=== PATIENT | female | born 1980 | race Hispanic/Latino ===

== ENCOUNTER 2017-03-11 11:14 | Outpatient (CLI) | payer BC ==
--- NOTE | 2017-03-11 13:05 | Mammography Report ---
BILATERAL DIGITAL DIAGNOSTIC MAMMOGRAM with CAD and TOMOSYNTHESIS and RIGHT BREAST ULTRASOUND: 03/11/17 11:14:00 CLINICAL: Bilateral breast lumps. The patient describes a right breast lump at 11 o'clock near the areola. COMPARISON:None. FINDINGS: The breasts are heterogeneously dense, which may obscure small masses.An irregular 7 mm right retroareolar asymmetry is identified on the tomographic CC view. No architectural distortion or suspicious calcifications. The left breast is negative. Ultrasound of the right breast was performed in the upper-outer quadrant and demonstrated an irregular solid hypoechoic mass at 11 o'clock at the edge of the areola. It measures 1.5 x 0.5 x 0.6 cm and correlates with the palpable finding and with the finding on the CC tomosynthesis. IMPRESSION: A suspicious 1.5 cm right breast mass at 11 o'clock near the areola. Recommend ultrasound-guided needle biopsy. BI-RADS CATEGORY: 4 -- Suspicious COMMENT: Patient follow-up letters are generated by our [employer] application.
== END 2017-03-11 11:15 | disposition home or self-care (01) ==
LOC: MAMMO 11:14
PROVIDERS: ATTEND Obstetrics & Gynecology Gynecology
DX: N63.10 Unspecified lump in the right breast, unspecified quadrant (principal); N63.20 Unspecified lump in the left breast, unspecified quadrant; N64.89 Other specified disorders of breast
CPT/HCPCS: 76642; G0204; G0279; 77066

== ENCOUNTER 2017-03-18 11:27 | Outpatient (CLI) | payer BC ==
--- NOTE | 2017-03-18 13:53 | Ultrasound Report ---
RIGHT BREAST ULTRASOUND: 03/18/17 11:27:00 CLINICAL: The patient presented for biopsy of a mass identified on 03/11/17. COMPARISON: 03/11/17 FINDINGS: Ultrasound of the right breast was performed and demonstrated normal fibroglandular structures with no mass to correspond with the abnormality identified on the prior study. I scanned the patient myself on this exam but did not have the activity to be that of the prior exam. IMPRESSION: Negative right breast ultrasound. Since the original abnormality was identified only on the CC view of the tomosynthesis, recommend a six-month followup mammogram with 3-D tomosynthesis. BI-RADS 3 - - Probably Benign
== END 2017-03-18 11:28 | disposition home or self-care (01) ==
LOC: SPVWC 11:27
PROVIDERS: ATTEND Obstetrics & Gynecology Gynecology
DX: N63.10 Unspecified lump in the right breast, unspecified quadrant (principal)

== ENCOUNTER 2017-08-19 08:39 | Outpatient (CLI) | payer BC | END 2017-08-19 08:40 | disposition home or self-care (01) | LOC: LAB 08:39 | PROVIDERS: ATTEND Obstetrics & Gynecology Gynecology | DX: Z00.01 Encounter for general adult medical examination with abnormal findings (principal); E78.5 Hyperlipidemia, unspecified; R79.89 Other specified abnormal findings of blood chemistry | CPT/HCPCS: 36415; 82607; 83036; 83735 ==

== ENCOUNTER 2017-09-05 08:13 | Outpatient (CLI) | payer BC ==
--- NOTE | 2017-09-05 16:36 | Mammography Report ---
RIGHT DIGITAL DIAGNOSTIC BREAST TOMOSYNTHESIS (DBT) 09/05/17 08:13:00 CLINICAL: Six month followup asymmetry initially identified on the CC tomographic series. She presented for an ultrasound directed biopsy on 03/18/17 but no lesion was detected for biopsy. COMPARISON:03/11/17 mammogram and right breast ultrasound and 03/18/17 right breast ultrasound. FINDINGS: A subtle retroareolar asymmetry is identified on image 42 of the CC tomographic series. It is less prominent than on the prior mammogram. No definite correlate on the MLO series. Spot MLO and CC today views were obtained and are negative. IMPRESSION: No mammographic evidence of malignancy. Recommend return to routine screening. BI-RADS CATEGORY: 1 - - Negative COMMENT: Patient follow-up letters are generated by our [employer] application.
--- NOTE | 2017-09-08 08:44 | Mammography Report ---
RIGHT DIGITAL DIAGNOSTIC MAMMOGRAM WITH DIGITAL BREAST TOMOSYNTHESIS (DBT) 09/05/17 08:13:00 CLINICAL: Six month followup asymmetry initially identified on the CC tomographic series. She presented for an ultrasound directed biopsy on 03/18/17 but no lesion was detected for biopsy. COMPARISON:03/11/17 mammogram and right breast ultrasound and 03/18/17 right breast ultrasound. FINDINGS: A subtle retroareolar asymmetry is identified on image 42 of the CC tomographic series. It is less prominent than on the prior mammogram. No definite correlate on the MLO series. Spot MLO and CC today views were obtained and are negative. IMPRESSION: No mammographic evidence of malignancy. Recommend return to routine screening. BI-RADS CATEGORY: 1 - - Negative COMMENT: Patient follow-up letters are generated by our [employer] application.
== END 2017-09-05 08:14 | disposition home or self-care (01) ==
LOC: MAMMO 08:13
PROVIDERS: ATTEND Obstetrics & Gynecology Gynecology
DX: N63.10 Unspecified lump in the right breast, unspecified quadrant (principal); N64.89 Other specified disorders of breast
CPT/HCPCS: 77065; G0279

== ENCOUNTER 2020-04-20 08:09 | Outpatient (CLI) | payer BC ==
--- NOTE | 2020-04-20 09:15 | Mammography Report ---
DIGITAL SCREENING MAMMOGRAM WITH CAD, 04/20/2020 CLINICAL INFORMATION / INDICATION: Routine screening mammography. SCREENING MAMMO TECHNIQUE: Digital bilateral 2D mammography was obtained in the craniocaudal and mediolateral obliqu e projections. This examination was interpreted with the benefit of Computer-Aided Detection analysis . COMPARISON: 03/02/2018, 04/01/2019 FINDINGS: Breast Density: The breasts are heterogeneously dense, which may obscure small masses. No dominant mass, suspicious calcifications, or architectural distortion in the right breast. There i s possible developing architectural distortion seen on the cc view in the posterior depth lateral to the nipple line. IMPRESSION: There is questionable developing architectural distortion seen on the left cc view. Follow up recommendation: Special View: Spot BI-RADS Category 0: Incomplete. Needs additional imaging evaluation and/or prior mammograms for rachel haro. A "normal" or negative report should not discourage follow up or biopsy of a clinically significant f inding. A written summary of these findings will be mailed to the patient. The patient will be entered into a mammography reporting system which will generate a reminder letter for the patient's next appointmen t at the appropriate interval. The [employer] recommends yearly mammograms starting at age 40 and continuing as l kleber as a woman is in good health. Breast MRI is recommended for women with an approximate 20-25% or greater lifetime risk of breast cancer, including women with a strong family history of breast or ova ever cancer or who have been treated for Hodgkin's disease. Signer Name: Venkatesh Hawkins MD Signed: 04/20/2020 9:11 AM Workstation Name: [id number]
== END 2020-04-20 08:10 | disposition home or self-care (01) ==
LOC: SPVWC 08:09
PROVIDERS: ATTEND Surgery
DX: Z12.31 Encounter for screening mammogram for malignant neoplasm of breast (principal)
CPT/HCPCS: 77067

== ENCOUNTER 2020-04-25 10:29 | Outpatient (CLI) | payer BC ==
--- NOTE | 2020-04-25 11:25 | Mammography Report ---
DIGITAL DIAGNOSTIC MAMMOGRAM WITH CAD CONVENTIONAL, 04/25/2020 CLINICAL INFORMATION / INDICATION: Possible architectural distortion on the left cc view. TECHNIQUE: Digital left mammographic imaging was performed. Spot compression views were obtained. This examination was interpreted with the benefit of Computer-aided Detection analysis. COMPARISON: Bilateral mammography 04/20/20. FINDINGS: Breast Density: The breasts are heterogeneously dense, which may obscure small masses. No dominant mass, suspicious calcifications or architectural distortion in the left breast. No eviden ce of persistent distortion is seen on additional imaging of the left breast. IMPRESSION: No mammographic evidence of malignancy. Follow up recommendation: Routine yearly BI-RADS Category 1: Negative. A "normal" or negative report should not discourage follow up or biopsy of a clinically significant f inding. A written summary of these findings will be mailed to the patient. The patient will be entered into a mammography reporting system which will generate a reminder letter for the patient's next appointmen t at the appropriate interval. According to the [employer], yearly mammograms are recommended starting at age 40 and continuing as long as a woman is in good health. Breast MRI is recommended for women with an colin roximately 20-25% or greater lifetime risk of breast cancer, including women with a strong family his tory of breast or ovarian cancer and women who have been treated for Hodgkin's disease. Signer Name: Anil Marrero MD Signed: 04/25/2020 11:20 AM Workstation Name: [id number]
== END 2020-04-25 10:30 | disposition home or self-care (01) ==
LOC: SPVWC 10:29
PROVIDERS: ATTEND Surgery
DX: R92.8 Other abnormal and inconclusive findings on diagnostic imaging of breast (principal)